=== PATIENT | female | born 1995 ===

== ENCOUNTER 2020-08-27 22:20 | Inpatient (IN) | payer MEDICARE, OTHER ==
[~2020-08-27] VITALS: Ht 162.6 cm; Wt 117.9 kg
[2020-08-27] MEDS ORDERED: Prozac20 MG PO (22:31)
[2020-08-27] MEDS ORDERED: OLAN5 PO (22:31)
[2020-08-27 22:43] LABS: BASOPHILS ABSOLUTE AUTO 0.03 K/mm3 (0.00-0.23); BASOPHILS PERCENT AUTO 0 % (0-2); EOSINOPHILS ABSOLUTE AUTO 0.06 K/mm3 (0.00-0.68); EOSINOPHILS PERCENT AUTO 1 % (0-6); Hematocrit 43.9 % (33.0-51.0); Hemoglobin 13.9 g/dL (11.5-16.0); IMMATURE GRAN ABSOLUTE AUTO 0.12 K/mm3 (0.00-0.10); IMMATURE GRAN PERCENT AUTO 1 % (0-1); LYMPHOCYTES ABSOLUTE AUTO 2.67 K/mm3 (0.84-5.20); LYMPHOCYTES PERCENT AUTO 29 % (21-46); MONOCYTES ABSOLUTE AUTO 0.73 K/mm3 (0.16-1.47); MONOCYTES PERCENT AUTO 8 % (4-13); Mean Corpuscular HGB 27.2 pg (26.0-34.0); Mean Corpuscular HGB Conc 31.7 g/dL (31.5-36.5); Mean Corpuscular Volume 86 fL (80-100); Mean Platelet Volume 10.1 fL (9.1-12.4); NEUTROPHILS ABSOLUTE AUTO 5.67 K/mm3 (1.96-9.15); NEUTROPHILS PERCENT AUTO 61 % (41-73); Platelet Count 581 K/mm3 (150-400); RDW Coefficient Variation 13.3 % (11.7-14.2); RDW Standard Deviation 42.2 fL (35.1-46.3); Red Blood Cell Count 5.11 M/mm3 (3.80-5.20); White Blood Cell Count 9.28 K/mm3 (4.00-11.30)
[2020-08-27 22:54] LABS: Alanine Aminotransfer (ALT/SGP 36 U/L (12-78); Albumin, Blood 3.4 g/dL (3.4-5.0); Albumin/Globulin Ratio 0.8 (0.8-1.8); Alk Phos 71 U/L (50-136); Anion Gap 6 mmol/L (6-16); Aspartate Aminotrans (AST/SGOT 28 U/L (12-37); Bilirubin, Total 0.3 mg/dL (0.1-1.0); Blood Urea Nitrogen 12 mg/dL (8-24); CO2, Blood 28 mmol/L (21-32); Calcium, Blood 9.2 mg/dL (8.5-10.1); Chloride, Blood 105 mmol/L (98-108); Creatinine, Blood 0.75 mg/dL (0.40-1.00); Globulin, Blood 4.5 g/dL (2.2-4.0); Glomerular Filtration Rate >60 (60-); Glucose, Blood 119 mg/dL (70-99); Potassium, Blood 3.2 mmol/L (3.5-5.5); Sodium, Blood 139 mmol/L (136-145); Total Protein, Blood 7.9 g/dL (6.4-8.2)
[2020-08-28 00:08] LABS: Influenza A, PCR NEGATIVE (NEGATIVE); Influenza B, PCR NEGATIVE (NEGATIVE); Resp Syncytial Virus, PCR NEGATIVE (NEGATIVE)
[2020-08-28 00:09] LABS: SARS-Cov-2 (COVID-19) PCR, MMC POSITIVE (NEGATIVE)
[2020-08-28 00:11] LABS: PCO2 Arterial 44.4 mmHg (35-45); PO2 Arterial 73.3 mmHg (80-100); pH Blood Arterial 7.44 (7.35-7.45)
[2020-08-28 03:00] LABS: Anion Gap 6 mmol/L (6-16); Blood Urea Nitrogen 11 mg/dL (8-24); Bun/Creatinine Ratio 14.9 (12.0-20.0); CO2, Blood 29 mmol/L (21-32); Chloride, Blood 106 mmol/L (98-108); Creatinine, Blood 0.74 mg/dL (0.40-1.00); Glomerular Filtration Rate >60 (60-); Glucose, Blood 120 mg/dL (70-99); Potassium, Blood 3.4 mmol/L (3.5-5.5); Prolactin 7.1 ng/mL; Sodium, Blood 141 mmol/L (136-145)
--- NOTE | 2020-08-28 07:15 | NUR ---
SHIFT SUMMARY PATIENT SLEPT WELL THROUGH NIGHT. NOTICED WHEN I WENT IN TO GIVE AM PRILOSEC PT. HAD KNOCKED OXYGEN OFF IN HER SLEEP AND WAS STILL MAINTAING SPO2 93%, PT. IMMEDIATELY PUT BACK IN NOSE. NO C/O PAIN NOR SHORTNESS OF BREATH. ASSESSMENT IS CHARTED. VSS. WILL CONTINUE TO MONITOR.
--- NOTE | 2020-08-28 08:00 | NUR ---
DR. REYNAGA UPDATED ON PATIENT STATUS. INFORMED OF POTASSIUM OF 3.4 AND D-DIMER OF 1.11.
--- NOTE | 2020-08-28 09:15 | NUR ---
INITIAL ASSESSMENT PATIENT ALERT AND ORIENTED X 4, AFEBRILE. PATIENT SLOW TO RESPOND, HX OF LEARNING DISABILITY. PATIENT COOPERATIVE. FLAT AFFECT NOTED. PATIENT DENIES PAIN OR DISCOMFORT. PATIENT SBA FOR LINES/ CORDS; AMBULATES WELL. LUNGS CLEAR IN UPPER LOBES AND DIMINISHED IN LOWER LOBES. PATIENT REPORTS OCCASIONAL, DRY COUGH. PATIENT SATTING 90% AND GREATER ON 5 L NC. PATIENT IN SR, HR IN THE 80S. SBP IN THE 150S. PULSES STRONG. GI WNL. PATIENT HAS ADEQUATE APPETITE. DATE OF LAST BM UNKNOWN. WNL. SKIN APPEARS WNL. PATIENT REPOSITIONING SELF IN BED. IV FLUSHED AND SALINE LOCKED. BED LOW, CALL LIGHT IN REACH. PATIENT REMINDED ABOUT CALL LIGHT AND TO CALL IF SHE NEEDS ANYTHING. WILL CONTINUE TO MONITOR PATIENT FREQUENTLY THROUGHOUT SHIFT.
--- NOTE | 2020-08-28 11:43 | NUR ---
PATIENT RESTING QUIETLY IN BED WATCHING TV. PATIENT HAS NO COMPLAINTS OF PAIN. HR 70S TO 80S. SBP 130S TO 150S. PATIENT REMAINS SATTING 90% AND GREATER ON 5 L NC. NO ACUTE CHANGES TO NOTE ON AT THIS TIME. WILL CONTINUE TO MONITOR.
--- NOTE | 2020-08-28 12:20 | NUR ---
PATIENT'S MOTHER CALLED AFTER SPEAKING TO PATIENT'S FATHER. NEITHER PATIENT'S MOTHER OR FATHER HAVE EVER KNOWN PATIENT TO HAVE OR BE DIAGNOSED WITH HYDROCEPHALUS. DR. REYNAGA INFORMED.
--- NOTE | 2020-08-28 15:54 | NUR ---
PATIENT'S FATHER CALLED AND UPDATED ON PATIENT STATUS. INFORMED THAT PATIENT HAS RECEIVED NEW ROOM ASSIGNMENT ON MEDICAL FLOOR, ROOM 313.
--- NOTE | 2020-08-28 16:21 | NUR ---
SHIFT SUMMARY PATIENT REMAINED ALERT AND ORIENTED WITH SOME NOTICEABLE LEARNING DISABILITY. PATIENT REMAINED AFEBRILE. NO COMPLAINTS OF PAIN THIS SHIFT. PATIENT AMBULATED WELL WITH STAFF AT SIDE TO HELP WITH LINES AND CORDS. PATIENT REMAINED SATTING 90% AND GREATER ON 5 L NC. PATIENT CONTINUED TO HAVE OCCASIONAL, DRY COUGH. PATIENT REMAINED IN SR, HR 70S TO 80S. SBP 1-TEENS TO 150S. NO BM THIS SHIFT. GOOD APPETITE. WNL. URINE CULTURE NEEDS TO BE COLLECTED AND SENT TO LAB. NO CHANGES TO SKIN. PATIENT REMAINED REPOSITIONING SELF IN BED. CT PE STUDY RESULTS NEGATIVE. CT HEAD RESULTS SHOWED HYDROCEPHALUS. MOTHER AND FATHER UNAWARE OF PATIENT EVER BEING TOLD PATIENT HAS/ HAD HYDROCEPHALUS. KEPPRA ORDERED PATIENT CAME TO ER WITH SEIZURE. MED RECONCILIATION NEEDS TO BE DONE WITH PATIENT'S MOTHER.
--- NOTE | 2020-08-28 16:33 | NUR ---
PATIENT SUCCESSFULLY TRANSPORTED TO MEDICAL FLOOR, ROOM 313, BED 2. MOTHER CALLED AND UPDATED ON TRANSFER. ALL BELONGINGS SENT WITH PATIENT.
--- NOTE | 2020-08-28 16:45 | NUR ---
PATIENT TRANSFERRED FROM ICU 12 TO ROOM 313 BED 2. PATIENT ORIENTED TO ROOM AND USE OF CALL LIGHT. 5LO2 TO MAINTAIN SATS. ASSISTED TO BSC. FALL PRECAUTIONS IN PLACE AND PATIENT ISTRUCTED TO BEFORE GETTING UP. TELE D/C'D. DENIES ANY PAIN OR DISCOMFORT. TOLERATING ADA DIET.
[2020-08-29 04:49] LABS: Hematocrit 42.6 % (33.0-51.0); Hemoglobin 13.1 g/dL (11.5-16.0); Mean Corpuscular HGB 27.3 pg (26.0-34.0); Mean Corpuscular HGB Conc 30.8 g/dL (31.5-36.5); Mean Corpuscular Volume 89 fL (80-100); Platelet Count 563 K/mm3 (150-400); RDW Coefficient Variation 13.6 % (11.7-14.2); RDW Standard Deviation 44.6 fL (35.1-46.3); Red Blood Cell Count 4.79 M/mm3 (3.80-5.20); White Blood Cell Count 10.46 K/mm3 (4.00-11.30)
[2020-08-29 05:12] LABS: Anion Gap 6 mmol/L (6-16); Blood Urea Nitrogen 14 mg/dL (8-24); CO2, Blood 25 mmol/L (21-32); Calcium, Blood 8.9 mg/dL (8.5-10.1); Chloride, Blood 106 mmol/L (98-108); Creatinine, Blood 0.67 mg/dL (0.40-1.00); Glomerular Filtration Rate >60 (60-); Glucose, Blood 118 mg/dL (70-99); Potassium, Blood 3.4 mmol/L (3.5-5.5); Sodium, Blood 137 mmol/L (136-145)
--- NOTE | 2020-08-29 06:34 | NUR ---
SHIFT SUMMARY PT IS A 25 Y/O FEMALE, ADMITTED FOR COVID-19 AND CURRENTLY IN ENHANCED PRECAUTIONS. SHE IS A&O X 3, SBA TO THE BATHROOM. PT WAS WEANED FROM 5L TO 3L OF O2 VIA NC, SUSTAINING IN THE 90S ON 3L PER CONTINUOUS BIOX. PT DENIED ANY C/O PAIN, NAUSEA OR SOB. AM BP WAS LOW AT 93/59. ALL OTHER VITALS STABLE. NO OTHER ACUTE CHANGES IN PT CONDITION NOTED. WILL CONTINUE TO MONITOR AND TREAT PER EMAR UNTIL HAND OFF TO DAY SHIFT RN.
--- NOTE | 2020-08-29 15:55 | NUR ---
PATIENT IS PLEASANT AND COOPERATIVE WITH STAFF AND CARE. VITALS HAVE BEEN STABLE. I HAVE BEEN ABLE TO WEAN PATIENT OFF OF HER O2 NC; OCCASIONALLY DESATS TO THE HIGH 80S BUT QUICKLY RECOVERS TO THE 90s; ON CONTINUOUS BIOX. CONTINUES ON IV KEPPRA, AND IV REMDESMIVIR WITHOUT S/SX OF ADVERSE REACTIONS NOTED OR REPORTED. NO COMPLAINTS OF PAIN OR DISCOMFORT. CALL LIGHT WITHIN REACH.
--- NOTE | 2020-08-30 06:28 | NUR ---
PT IS ALERT, SLOW. UP THIS SHIFT WITH HYDRAULIC [employer] MECHANIC FOR SHOWER. PT IS VERY PRIVATE IS ON HER MENSES BUT REFUSES TO AKNOWLEDGE OR CHANGE UNDERCLOTHES. STANDBY ASSIST TO RESTROOM, CONTINUOUS BIOX.
--- NOTE | 2020-08-30 17:36 | NUR ---
SHIFT SUMMARY PT A&OX4, ABLE TO MAKE NEEDS KNOWN. PLEASANT AND COOPERATIVE WITH CARE. NO C/O PAIN OR ANY DISCOMFORT. DENIES CP / SOB / N&V. RESPS E/U IN RA. ON CONT BIOX SATS >92%. PT CONTINUES ON IV ABX, NO ASE NOTED. BED AT LOWEST POSITION. CALL LIGHT WITHIN REACH.
--- NOTE | 2020-08-31 05:44 | NUR ---
PT IS A/O, PLEASANT, DEVELOPMENTALLY DELAYED. PT HAD NO COMPLAINTS THIS SHIFT, AWAITING D/C SATURDAY AFTER LAST DOSE OF REMDESVIR. PT ON RA T/O SHIFT, UP TO RESTROOM IND.
--- NOTE | 2020-08-31 17:01 | NUR ---
SHIFT SUMMARY NO ACUTE CHANGES NOTED TO PT THIS SHIFT. A&OX4, ABLE TO MAKE NEEDS KNOWN. PLEASANT AND COOPERATIVE TO CARE. NO C/O PAIN OR ANY DISCOMFORT. DENIES CP/SOB/N&V. RESPS E/U IN RA, NO COUGH, LSCTA. PT CONTINUES ON IV ABX ORDERED, NO ASE NOTED. BED AT LOWEST POSITION. CALL LIGHT WITHIN REACH.
--- NOTE | 2020-09-01 04:35 | NUR ---
SHIFT SUMMARY ASSUMED CARE OF PT AT 1900. PT IS A/OX4. HEART SOUNDS REGULAR, LUNG SOUNDS CLEAR. PT ON RA. PT EXCITED ABOUT GOING HOME. PT ASKED FOR A SNACK. PT INDEPENDENT TO BATHROOM. NO NEW COMPLAINTS. CALL LIGHT IN REACH, BED IN LOWEST POSTION.
[2020-09-01 04:57] LABS: Hematocrit 43.9 % (33.0-51.0); Hemoglobin 14.1 g/dL (11.5-16.0); Mean Corpuscular HGB 27.2 pg (26.0-34.0); Mean Corpuscular HGB Conc 32.1 g/dL (31.5-36.5); Mean Corpuscular Volume 85 fL (80-100); Mean Platelet Volume 9.9 fL (9.1-12.4); Platelet Count 712 K/mm3 (150-400); RDW Coefficient Variation 13.4 % (11.7-14.2); RDW Standard Deviation 41.5 fL (35.1-46.3); Red Blood Cell Count 5.18 M/mm3 (3.80-5.20); White Blood Cell Count 14.14 K/mm3 (4.00-11.30)
[2020-09-01 05:19] LABS: Anion Gap 2 mmol/L (6-16); Blood Urea Nitrogen 16 mg/dL (8-24); Bun/Creatinine Ratio 23.8 (12.0-20.0); CO2, Blood 29 mmol/L (21-32); Calcium, Blood 8.9 mg/dL (8.5-10.1); Chloride, Blood 105 mmol/L (98-108); Creatinine, Blood 0.67 mg/dL (0.40-1.00); Glomerular Filtration Rate >60 (60-); Glucose, Blood 116 mg/dL (70-99); Potassium, Blood 4.3 mmol/L (3.5-5.5); Sodium, Blood 136 mmol/L (136-145)
[2020-09-01] MEDS ORDERED: LEVE500 PO (10:43)
[2020-09-01] MEDS ORDERED: DEXA6 PO (10:43)
[2020-09-01] MEDS ORDERED: Vitamin D2000 UNIT PO (10:44)
--- NOTE | 2020-09-01 12:47 | NUR ---
DISCHARGE NOTE PT IV REMOVED FROM LEFT AC BY THIS RN. PT IS AO AND ALERT. PT DRESSED SELF IN HOME CLOTHING. THIS RN REVIEWED DC INSTRUCTIONS WITH PT WHO VERBALIZED UNDERSTANDING. PT'S MOTHER NOTIFIED OF PT'S DC. PT ASSISTED INTO A WHEELCHAIR AND WHEELED OFF UNIT BY TRANSPORTERS. PT HAD BELONGINGS PRESENT AND HAS LEFT THE BUILDING.
== END 2020-09-01 12:46 | disposition home or self-care (01) | DRG 177 ==
LOC: ER 22:20 → ICUW 08-28 01:46 → MEDS 08-28 16:32
PROVIDERS: Emergency Medicine; Internal Medicine; ADMIT Internal Medicine
PROC: 3E0333Z Introduction of Anti-inflammatory into Peripheral Vein, Percutaneous Approach (ICD-10-PCS; principal; 2020-08-27)
PROC: 8E0ZXY6 Isolation (ICD-10-PCS; 2020-08-27)
PROC: XW033E5 Introduction of Remdesivir Anti-infective into Peripheral Vein, Percutaneous Approach, New Technology Group 5 (ICD-10-PCS; 2020-08-29)
DX: U07.1 COVID-19 (principal); J96.01 Acute respiratory failure with hypoxia; J12.82 Pneumonia due to coronavirus disease 2019; G91.9 Hydrocephalus, unspecified; G40.89 Other seizures; F81.9 Developmental disorder of scholastic skills, unspecified; E87.6 Hypokalemia; Z79.899 Other long term (current) drug therapy
CPT/HCPCS: 0241U; 36415; 36600; 70450; 71260; 80048; 80053; 82803; 83605; 84146; 85025; 85027; 85379; 93005; 93010; 94762; 96375; 96376; 99285-25; A9270; J1100; J1650; J1953; J7050; Q9967